=== PATIENT | female | born 1975 | race Caucasian/White ===

== ENCOUNTER 2017-01-31 05:42 | Day surgery (SDC) | payer OTHER, BC ==
[~2017-01-31] VITALS: Ht 167.6 cm; Wt 101.2 kg
--- NOTE | ~2017-01-31 | O ---
[facility] [place] [address] OPERATIVE REPORT Name: FARIDA CAR Room #: [facility] M.Dalia.#: [id number] Admission: 01/31/17 Attend Phys: Alma Mares, Discharge: 01/31/17 Date of : 73 Report #: [id number] THIS REPORT FOR: //name// CC: Mike Mares DATE OF SERVICE: 01/31/2017 PREOPERATIVE DIAGNOSES: 1. Right thumb carpometacarpal arthritis. 2. 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 POSTOPERATIVE DIAGNOSES: 1. Right thumb carpometacarpal arthritis. 2. 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 PROCEDURES PERFORMED: 1. Right thumb carpometacarpal arthroplasty using Arthrex suture tape and allograft tendon with allograft tendon placement in the trapezial space. 2. Right thumb metacarpophalangeal joint arthrodesis. SURGEON: Alma Mares M.D. ANESTHESIA: General mask anesthesia. ESTIMATED BLOOD LOSS: 6 mL. TOURNIQUET TIME: 120 minutes. COMPLICATIONS: None. IMPLANTS USED: Arthrex internal splint stabilizer with suture tape and allograft flexor tendon as well as K-wires and 22-guage wire. COMPLICATIONS: None. CONDITION: Stable. DISPOSITION: Recovery room. INDICATIONS: The patient is a 41-year-old female with the above-mentioned diagnoses. She elected for operative treatment. The risks, benefits, alternatives and complications were discussed that included but were not limited to infection, damage to blood vessels or nerves, nonunion, malunion, hardware failure, hardware irritation, stiffness and incomplete relief of her symptoms. An informed consent was obtained. The correct extremity was identified and [facility] [address] [place] [address] OPERATIVE REPORT Name: FARIDA CAR Room #: [facility] Jessica#: [id number] Admission: 01/31/17 Attend Phys: Alma Mares, Discharge: 01/31/17 Date of : 73 Report #: [id number] labeled by myself after verbal confirmation of the patient as well as visual confirmation and signed informed consent. DESCRIPTION OF PROCEDURE: The patient was brought back to the operating room and placed on the operative room table in the supine position. She received preoperative antibiotics. Tourniquet was placed over padding on the patient's right upper extremity. The right upper extremity was sterilely prepped and draped in the usual fashion. Final timeout was taken to verify the correct patient, operative procedure and operative site, all concurred. The arm was elevated and exsanguinated, and tourniquet was inflated. Next, a dorsal incision was made over the thumb CMC joint just dorsal to the first compartment tendons. Dissection was carried down through the subcutaneous tissue with tenotomy scissors. The first compartment tendons were identified, and the first compartment was incised. Next, the radial artery was identified. It was mobilized and retracted with the EPB tendon dorsally. Next, ____ capsule was incised. Dorsal periosteum was elevated off the trapezium, and then the trapezium was split into 2 and removed with a combination of sharp dissection as well as a rongeur. The scaphotrapezoid joint was evaluated and looked to be in excellent condition. The distal pole of the scaphoid had good cartilage coverage as well. Of note, there was a significant amount of cartilage loss at the CMC joint. There were multiple loose bodies. A curette was placed into the thumb and index CMC joints, and there were no loose bodies noted. The trapezial space was thoroughly irrigated. Next, using fluoroscopy, a guidewire for the thumb metacarpal and for the index metacarpal was inserted into each, first the thumb, and then the drill was used to overdrill for the anchor. Fluoroscopy was used to confirm both AP and lateral live fluoroscopic views correct positioning. Next, attention was placed to the MP joint. A curvilinear incision was made over the MP joint. Dissection was carried down through the subcutaneous tissues with tenotomy scissors. The EPL tendon was split, and then the capsule was incised. The MP cartilage was evaluated and looked to be in poor condition, and it was very thin. Next, the collaterals were incised, and the periosteum was elevated off the proximal phalanx base using soft tissue protection and irrigation while the saw was moving. A small micro-oscillating saw was used to cut the proximal phalanx base down to nice cancellous bone, and then the distal aspect of the metacarpal at an approximately 30-degree angle. This was checked under fluoroscopy and found to be in good position. Next, attention was placed to the thumb CMC space. Next, a 2 mm x 10 cm graft was cut. It was placed into the anchor with the suture tape and then affixed into the radial aspect of the thumb metacarpal base in the mid portion in the AP plane. It was tensioned and had an excellent tension and excellent fixation. Next, with the thumb adducted and traction applied on it, the other anchor was placed with the suture tape, and the graft into the index metacarpal. This resulted in excellent maintenance of the space as well as good ability to abduct the thumb. There was no evidence of impingement. Next, the wound was [facility] [address] [place] [address] OPERATIVE REPORT Name: FARIDA CAR Room #: DEP [facility]..#: [id number] Admission: 01/31/17 Attend Phys: Alma Maers, Discharge: 01/31/17 Date of : 73 Report #: [id number] thoroughly irrigated. The suture tape was tied into the space, and the ends were cut of this. The remaining portion of the tendon was sutured into the space using a 4-0 Vicryl suture onto the volar capsule. Next, attention was placed back to the MP joint. A transverse hole was made in the proximal phalanx, and a 22-guage wire was placed across this. Next, two 0.045-inch K-wires were drilled across the fusion site into the proximal phalanx. These were repositioned a few times, but they were found to be in excellent position. The 22-guage wire was placed in a [id number] fashion and tightened. There was excellent compression and good position of the fusion. Next, the wires were cut and bent and then tamped into place in order to achieve another cortex of fixation. Again, fluoroscopy showed good position of the fusion and compression. Next, the wounds were all thoroughly irrigated. Watertight capsular closures were performed with 4-0 Ethibond suture on both. The tendon split was reapproximated with a running locked 4-0 Ethibond suture as well in the MP joint. The hardware was well buried. Fluoroscopy was again brought in to show good position of the fusion site and good stability of the thumb metacarpal base. It was in alignment with the index finger and had no significant proximal migration with axial compression. The skin was then closed with 4-0 nylon suture. The wound was infiltrated with approximately 5 mL of 0.25% Marcaine. She was placed in a bulky compressive dressing and a thumb spica splint. She tolerated the procedure well. All fingers were pink with brisk capillary refill. At the conclusion of the case, after deflation of the tourniquet, all sponge and needle counts were correct. The patient was transferred to postoperative recovery room in stable condition. <ELECTRONICALLY SIGNED> By: Alma Mares MD 02/04/17 1148 1526 2019 Alma Mares MD /nt
[~2017-01-31 05:42] MED LIST: ADDERALL 20 MG20 M1 PO; BACLOFEN20 MG PO; CELEXA20 MG PO; IMITREX100 MG PO; INDERAL LA60 M1 PO; LISINOPRIL40 MG PO; LODINE XL500 MG PO; MAGOX 400400 MG PO; MAXZIDE-25 MG1 EACH PO; MINOCYCLINE HC100 M2 PO; MORPHINE SULFAT60 M2 PO; PROTONIX40 M1 PO; PURE TAURINE500 MG PO; RISPERDAL2 MG PO; SYNTHROID125 MCG PO; TRAMADOL 50 MG50 MG PO; VITAMIN D5000 UNIT PO; VITAMINC500 PO
[2017-01-31 10:15] LABS: CREATININE 0.9 mg/dL (0.6-1.0); POTASSIUM 4.8 mmol/L (3.5-5.1)
[2017-01-31 13:16] VITALS: BP 106/61
[2017-01-31 15:29] VITALS: BP 106/61
== END 2017-01-31 16:29 | disposition home or self-care (01) ==
LOC: TBA 05:42 → OR 05:42
PROVIDERS: Orthopaedic Surgery Hand Surgery
DX: M18.11 Unilateral primary osteoarthritis of first carpometacarpal joint, right hand (principal); I10 Essential (primary) hypertension; K21.9 Gastro-esophageal reflux disease without esophagitis; F41.8 Other specified anxiety disorders; F31.9 Bipolar disorder, unspecified; Z98.890 Other specified postprocedural states; Z87.891 Personal history of nicotine dependence; Z88.0 Allergy status to penicillin; Z88.5 Allergy status to narcotic agent; Z79.899 Other long term (current) drug therapy
CPT/HCPCS: 50010; 50101; 50386; 51275; 51291; 55430; 56524; 56525; 56526; 56871; 57006; 57091; 59999; 62110; 62900; 70005

== ENCOUNTER 2017-07-04 05:20 | Day surgery (SDC) | payer OTHER, BC ==
[~2017-07-04] VITALS: Ht 167.6 cm; Wt 110.2 kg
--- NOTE | ~2017-07-04 | O ---
[facility] [place] [address] OPERATIVE REPORT Name: FARIDA CAR Room #: [facility]..#: [id number] Admission: 07/04/17 Attend Phys: Alma Mares, Discharge: 07/04/17 Date of : 73 Report #: [id number] THIS REPORT FOR: //name// CC: Alma ETIENNERELL DATE OF SERVICE: 07/04/2017 PREOPERATIVE DIAGNOSIS: Right thumb tendon adhesions, possible prominent hardware. POSTOPERATIVE DIAGNOSIS: Right thumb tendon adhesions without prominent hardware. PROCEDURE PERFORMED: Right thumb extensor tenolysis. SURGEON: Alma Mares MD ANESTHESIA: General mask anesthesia. ESTIMATED BLOOD LOSS: 2 mL. TOURNIQUET TIME: 31 minutes. COMPLICATIONS: None. CONDITION: Stable. DISPOSITION: Recovery room. INDICATIONS: The patient is a 42-year-old female who underwent right thumb CMC arthroplasty and MP fusion. She reports no pain at the MP joint, but has inability to elevate her thumb indicating EPL tendon adhesions. An ultrasound showed an intact tendon and a CT scan showed nearly healed fusion at the MP joint. On examination in the preoperative holding area, her thumb IP joint of her left hand, the unaffected hand extends to 0, but she does not have any hyperextension. In the preoperative holding area, her right thumb does not elevate though as mentioned previously. The typical procedure with postoperative course was discussed with the patient. The risks, benefits, alternatives, complications were discussed including but not limited to infection, damage to vessels or nerves, incomplete recovery of her motion, fracture through the fusion site if the fusion is not completely solid. Informed consent was obtained. The correct extremity was identified and labeled by myself after verbal confirmation of the patient as well as visual confirmation and signed informed consent. [address] [address] OPERATIVE REPORT Name: FARIDA CAR Room #: DEP [facility] Jessica#: [id number] Admission: 07/04/17 Attend Phys: Alma Mares, Discharge: 07/04/17 Date of : 73 Report #: [id number] DESCRIPTION OF PROCEDURE: The patient was brought back to the operating room and placed on the operating table in supine position. She received preoperative antibiotics. Tourniquet was placed over padding on the patient's right upper extremity. The right upper extremity was sterilely prepped and draped in the usual fashion. A timeout was taken to verify correct patient, operative procedure and operative site, all concurred. The arm was elevated, exsanguinated and the tourniquet inflated. Next, a prior surgical incision was made over the MP joint. This eventually was extended approximately 1 cm proximal and distal in order to find a normal appearing tendon. In the proximal portion of the incision, dissection was carried down through the subcutaneous tissue with tenotomy scissors. The EPL tendon was densely adherent to the subcutaneous tissue. It was mobilized. The prior suture to suture the EPL and EPB tendons was removed. The EPL tendon was densely adherent to the periosteum. These adhesions were completely freed all the way to the insertion of the EPL tendon. The hardware was evaluated. It was still buried, did not appear to be impinging upon the tendon in any way. The cerclage wire was not even palpable. Fluoroscopy was brought in, which showed persistent line at the fusion site and well positioned hardware. At this point, I elected to not remove the hardware. This was done in part due to the fact that her fusion, although clinically was healed, was not completely radiographically healed and most importantly removing the hardware would require incising the periosteum and elevating the periosteum, which potentially could create more trauma, leading to more adhesions around the EPL tendon. The wound was thoroughly irrigated. Tension was applied to the EPL tendon proximal to the original zone of adhesions and the thumb IP joint extended to neutral and the thumb elevated appropriately off the bed. The EPB tendon was tensioned proximally and the MP joints extended fully. Tendon adhesions were removed from the EPB tendon as well. Next, the interval between the EPB and EPL tendons was repaired using a few 3-0 Ethibond sutures. The tendons were tensioned again proximally and this did not affect the motion. The wound was thoroughly irrigated. Skin was closed with 4-0 nylon suture. The wound was dressed with Adaptic and sterile gauze. She was placed in a bulky dressing. All fingers were pink with brisk capillary refill at the conclusion of the case. After deflation of the tourniquet, all sponge and needle counts were correct. The patient was transferred to postoperative recovery room in stable condition. <ELECTRONICALLY SIGNED> By: Alma Mares MD 07/25/17 1656 1620 1811 Alma Mares MD /nt
[~2017-07-04 05:20] MED LIST changes: +AMITRIPTYLINE H25 M2 PO; +CLONAZEPAM 1 MG1 M1 PO; +DIVIGEL1 GM PO; +ETODOLAC500 MG PO; +MORPHINE SULFAT15 M3 PO; +ZOLPIDEM TARTRA10 MG PO
[2017-07-04 13:15] VITALS: BP 115/70
[2017-07-04 16:15] VITALS: BP 115/70
== END 2017-07-04 16:00 | disposition home or self-care (01) ==
LOC: TBA 05:20 → OR 05:20
DX: M65.841 Other synovitis and tenosynovitis, right hand (principal); I10 Essential (primary) hypertension; K21.9 Gastro-esophageal reflux disease without esophagitis; F41.8 Other specified anxiety disorders; F31.9 Bipolar disorder, unspecified; Z98.890 Other specified postprocedural states; Z87.891 Personal history of nicotine dependence; Z90.710 Acquired absence of both cervix and uterus; Z88.0 Allergy status to penicillin; Z88.8 Allergy status to other drugs, medicaments and biological substances; Z79.899 Other long term (current) drug therapy
CPT/HCPCS: 50010; 50101; 50386; 56525; 56526; 57006; 57091; 62110; 62900; 70005